=== PATIENT | male | born 2005 | race Two or more races ===

== ENCOUNTER 2024-09-09 17:13 | Inpatient (IN) ==
[2024-09-09 18:46] LABS: Appearance Urine Clear (Clear); Basophils # (auto) 0.03 K/uL (0.00-0.20); Basophils % (auto) 0.5 %; Bilirubin Urine Negative (Negative); Blood Urine Negative (Negative); Color Urine Yellow; Eosinophils # (auto) 0.03 K/uL (0.00-0.50); Eosinophils % (auto) 0.5 %; Glucose Urine UA Negative (Negative); Hematocrit (blood only) 48.1 % (42.0-52.0); Hemoglobin 16.3 g/dl (14.0-18.0); Immature Granulocytes # (auto) 0.01 K/uL (0.01-0.20); Immature Granulocytes % (auto) 0.2 %; Ketones Urine 2+ (Negative); Leukocyte Esterase Urine Negative (Negative); Lymphocytes # (auto) 2.01 K/uL (1.20-3.40); Lymphocytes % (auto) 32.7 %; Mean Corpuscular Hgb Conc 33.9 g/dL (32.0-36.0); Mean Corpuscular Volume 82.5 fL (80.0-100.0); Mean Platelet Volume 9.6 fL (9.4-12.4); Monocytes # (auto) 0.39 K/uL (0.11-0.59); Monocytes % (auto) 6.3 %; Neutrophils # (auto) 3.68 K/uL (1.40-6.50); Neutrophils % (auto) 59.8 %; Nitrite Urine Negative (Negative); Platelet Count 238 K/uL (130-400); Protein Urine Negative (Negative); RDW Coefficient of Variation 13.3 % (11.5-14.5); RDW Standard Deviation 39.8 fL (36.4-46.3); Red Blood Count 5.83 M/uL (4.70-6.10); Specific Gravity Urine 1.021 (1.000-1.030); Urobilinogen Urine Negative (Negative); White Blood Count 6.15 K/ul (4.8-10.8); pH Urine 6.5 (4.5-7.5)
--- NOTE | 2024-09-09 18:58 | Emergency Department Note ---
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 Patient states he has been having suicidal ideation because he is stressed about his classes. Patient states he was started on new anxiety and depression medications but they have not been helping and they have been causing him to have suicidal ideations. Patient Nuys any plan as to how he would kill himself. No access to any firearms. No drugs or alcohol. Home Medications Medication Instructions Recorded Confirmed Type desvenlafaxine succinate 25 mg 25 mg PO DAILY 09/09/24 09/09/24 History tablet,extended release 24 hr lorazepam 0.5 mg tablet 0.5 mg PM 09/09/24 09/09/24 History propranolol 10 mg tablet 10 mg DAILY PRN Anxiety 09/09/24 09/09/24 History Allergies Allergy/AdvReac Type Severity Reaction Status Date / Time No Known Allergies Allergy Verified 09/09/24 20:50 Past Med/Surg History Problem List (Updated 09/09/24 @ 23:37 by Noe Wu MD) Anxiety (Acute) Depression with suicidal ideation (Acute) Medical History No pertinent family history Depression Anxiety Surgical History No pertinent past surgical history Family History Other Family history non-contributory Social History Smoking Status: Current every day smoker Feels Safe at Home: Yes Gender Identity: Male Physical Exam Vital Signs Vital Signs - 24 hr 09/09/24 17:29 09/09/24 21:01 Temperature 36.8 C 36.8 C Temperature Source Skin Oral Pulse Rate 56 L Pulse Rate [Left Radial] 55 L Respiratory Rate 18 18 Blood Pressure 182/90 H Blood Pressure [Left Arm] 122/78 Blood Pressure Mean 120 Blood Pressure Mean [Left Arm] 92 Pulse Oximetry 99 99 Oxygen Delivery Method Room Air Room Air Sepsis Recent Fever Within 48 Hours No Sepsis New/Unexplained Change in Mental Status No Sepsis Action Taken by Nursing No Action Required Physical Exam GENERAL: oriented to person, place, and time. appears well-developed and well- nourished. HENT: Exam performed. - Head: Normocephalic and atraumatic. EYES: Conjunctivae and EOM are normal. Right eye exhibits no discharge. Left eye exhibits no discharge. No scleral icterus. NECK: Normal range of motion. Neck supple. No JVD present. CV: Normal rate, regular rhythm, normal heart sounds and intact distal pulses. There is no peripheral edema. Palpable radial pulses bue. PULM/CHEST: Effort normal and breath sounds normal. No respiratory distress. No stridor. no wheezes. no rales. ABD: The abdomen is soft. There is no tenderness. NEURO: Motor and sensation grossly intact. SKIN: Skin is warm and dry. He is not diaphoretic. PSYCH: Patient appears anxious and depressed. Suicidal ideation. Course Course 171: The patient was evaluated in room A6. A complete history and physical exam was performed 0: Patient medically cleared. Accepted to 3 S. Administered Medications Lorazepam (Lorazepam 0.5 Mg Tab) 0.5 mg PO QPM CHITO Stop: 10/09/24 23:19 Last Admin: 09/09/24 23:30 Dose: 0.5 mg Documented By: SARAH Medical Decision Making Laboratory Data Attestation: I reviewed the patient's lab results. 09/09/24 18:19 09/09/24 18:19 Lab Results 09/09/24 09/09/24 Range/Units 18:19 19:20 WBC 6.15 (4.8-10.8) K/ul RBC 5.83 (4.70-6.10) M/uL Hgb 16.3 (14.0-18.0) g/dl Hct 48.1 (42.0-52.0) % MCV 82.5 (80.0-100.0) fL MCH 28.0 (25.0-34.0) pg MCHC 33.9 (32.0-36.0) g/dL RDW Std Deviation 39.8 (36.4-46.3) fL RDW Coeff of Alfonso 13.3 (11.5-14.5) % Plt Count 238 (130-400) K/uL MPV 9.6 (9.4-12.4) fL Immature Gran % (Auto) 0.2 % Neut % (Auto) 59.8 % Lymph % (Auto) 32.7 % [place] % (Auto) 6.3 % Eos % (Auto) 0.5 % Baso % (Auto) 0.5 % Neut # (Auto) 3.68 (1.40-6.50) K/uL Lymph # (Auto) 2.01 (1.20-3.40) K/uL [place] # (Auto) 0.39 (0.11-0.59) K/uL Eos # (Auto) 0.03 (0.00-0.50) K/uL Baso # (Auto) 0.03 (0.00-0.20) K/uL Immature Gran # (Auto) 0.01 (0.01-0.20) K/uL Sodium 139 (136-145) mmol/L Potassium 3.3 L (3.5-5.1) mmol/L Chloride 104 (98-107) mmol/L Carbon Dioxide 28 (21-32) mmol/L Anion Gap 7 (3-11) BUN 11 (6-23) mg/dl Creatinine 0.99 (0.6-1.4) mg/dl Est Cr Clr Drug Dosing 122.9 ml/min eGFR 111.84 BUN/Creatinine Ratio 11.1 (10-20) Glucose 103 H (70-99(Fasting)) mg/dl Calcium 9.5 (8.6-10.3) mg/dl Total Bilirubin 1.5 H (0.2-1.0) mg/dl AST 16 (13-39) U/L ALT 14 (7-52) U/L Alkaline Phosphatase 111 H (34-104) U/L Total Protein 7.3 (6.0-8.3) gm/dl Albumin 4.4 (3.4-5.0) gm/dl Globulin 2.9 (2.5-4.0) gm/dl Albumin/Globulin Ratio 1.5 (0.9-2) TSH 0.836 (0.300-4.500) uIu/ml Urine Color Yellow Urine Appearance Clear (Clear) Urine pH 6.5 (4.5-7.5) Ur Specific [place] 1.021 (1.000-1.030) Urine Protein Negative (Negative) Urine Glucose (UA) Negative (Negative) Urine Ketones 2+ H (Negative) Urine Blood Negative (Negative) Urine Nitrite Negative (Negative) Urine Bilirubin Negative (Negative) Urine Urobilinogen Negative (Negative) Ur Leukocyte Esterase Negative (Negative) Salicylates < 3.0 L (3.0-30) mg/dl Urine Opiates Screen Neg (Neg) Ur Methadone, Qual Neg (Neg) Urine Fentanyl Screen Neg (Neg) Acetaminophen < 3 L (10-30) ug/ml Urine Barbiturates Neg (Neg) Ur Phencyclidine (PCP) Neg (Neg) U Amphetamin/Meth Scrn Neg (Neg) MDMA (Ecstasy) Screen Neg (Neg) U Benzodiazepines Scrn Neg (Neg) Ur Cocaine Metabolite Neg (Neg) U Marijuana (THC) Screen Neg (Neg) Ethyl Alcohol mg/dL < 10.0 (<10.0) mg/dl SARS-CoV-2, RNA, NAAT NEGATIVE (NEGATIVE) MDM Narrative 1719: The patient was evaluated in room A6. A complete history and physical exam was performed 2230: Patient medically cleared. Accepted to 3 S. Impression & Plan Depression with suicidal ideation, Anxiety Discharge Plan Visit Data Chief Complaint: Mental Health Evaluation Stated Complaint: MEDICAL CLEARANCE ED Provider: Noe Wu Discharge Problem: Depression with suicidal ideation, Anxiety Patient Disposition: Transfer Behavioral Health Fac Discharge Instructions Interventions: ED Discharge Assessment Last Done: 09/09/24 22:28
[2024-09-09 19:04] LABS: Albumin Globulin Ratio 1.5 (0.9-2); Albumin Level 4.4 gm/dl (3.4-5.0); BUN Creatinine Ratio 11.1 (10-20); Bilirubin,Total 1.5 mg/dl (0.2-1.0); Calcium 9.5 mg/dl (8.6-10.3); Creatinine Clr Calc Pharmacy 122.9 ml/min; Globulin 2.9 gm/dl (2.5-4.0); Potassium 3.3 mmol/L (3.5-5.1); Total Protein 7.3 gm/dl (6.0-8.3)
[2024-09-09 19:09] LABS: Acetaminophen < 3 ug/ml (10-30); Salicylate < 3.0 mg/dl (3.0-30)
[2024-09-09 19:13] LABS: Amphetamines+Metham, Urine Neg (Neg); Barbiturates, Urine Neg (Neg); Benzodiazepine, Urine Neg (Neg); Cocaine, Urine Neg (Neg); Fentanyl, Urine Neg (Neg); MDMA (Ecstacy), Urine Neg (Neg); Marijuana, Urine Neg (Neg); Methadone, Urine Neg (Neg); Opiate, Urine Neg (Neg); Phencyclidine, Urine Neg (Neg)
[2024-09-09 19:19] LABS: Thyroid Stimulating Hormone 0.836 uIu/ml (0.300-4.500)
[2024-09-09] MEDS ORDERED: hydrOXYzine HCl 25 MG TAB PO PRN (23:12)
[2024-09-09] MEDS ORDERED: ALUMINUM/MAGNESIUM SUSP 30 ML UDC PO PRN (23:12)
[2024-09-09] MEDS ORDERED: MAGNESIUM HYDROXIDE SUSP 30 ML UDC PO PRN (23:12)
[2024-09-09] MEDS ORDERED: BISMUTH SUBSALICYLATE 262 MG CHEW PO PRN (23:12)
[2024-09-09] MEDS ORDERED: SODIUM CHLORIDE 0.65% NA SOLN 45 ML (OCEAN) PRN (23:12)
[2024-09-09] MEDS ORDERED: ACETAMINOPHEN 325 MG TAB PO PRN (23:12)
[2024-09-09] MEDS ORDERED: PROPRANOLOL HCL 10 MG TAB PO PRN (23:17)
[2024-09-09] MEDS: LORazepam 0.5 MG TAB PO SCH (23:30)
[2024-09-10] MEDS: PROPRANOLOL HCL 10 MG TAB PO SCH (12:23)
[2024-09-10] MEDS: FLUoxetine HCL 10 MG CAP PO SCH (12:23)
[2024-09-10] MEDS: hydrOXYzine HCl 25 MG TAB PO PRN (14:11)
--- NOTE | 2024-09-10 14:11 | History & Physical ---
Date of Service September 10, 2024 Impression / Recommendations Impression SHARON BAKER single, [employer] international student 19-year-old [place] male who presents with suicidal ideation with no plan in the context of ruminating anxiety. He was admitted on 09/09/24 22:06 on a 201 voluntary commitment for suicidal ideation. Presentation consistent with generalized anxiety disorder with panic attacks and major depressive disorder recurrent episode. Presents worsening anxious ruminations and mood symptoms with increased frequency of suicidal thoughts. No complete trials of antidepressants. Presents poor self-esteem and family conflict. He presents highly anxious affect with restlessness, HR of 130 this AM. Labs reviewed: CBC, UA, UDS, COVID swab unremarkable. Potassium 3.3 and alkaline phosphatase of 111. Patient was educated about his conditions, benefits of antidepressant medications, the use of short-term agents to alleviate anxiety in the interim, and the benefits of long-term counseling and CBT to address anxious ruminations. He currently denies SI and is future oriented. Plan to start fluoxetine, increase frequency of propranolol, increased dose of nightly Ativan; medication side effects and adverse effects discussed with patient and agreeable. Would benefit from continued outpatient counseling. Overall, I spent a total of 70 minutes with this case including review of chart records, nursing report, review of lab work, direct evaluation of the patient at bedside, counseling the patient, multidisciplinary team meeting, orders, and documentation in the electronic health record. (1) Generalized anxiety disorder with panic attacks: (2) MDD (major depressive disorder), recurrent episode: (3) Family conflict: (4) Tobacco dependence in remission: Plan 09/10/2024:The patient was admitted to the [facility] ([facility]) on q15 min checks (behavioral with suicide precautions) for safety. The patient will participate in group, recreational, and milieu therapies and w ill be offered additional individual and family sessions as clinically appropriate. Start fluoxetine 10 mg daily Propranolol 10 mg 3 times daily Lorazepam 1 mg at bedtime Inventory Assets Strengths: independent, logical Needs: improved self esteem, coping skills Suicide Risk Level Suicide Risk Level: Moderate (q15 min suicide checks) Risk Factors Assessment Male: Yes : No Do You Have Access To A Gun?: No Health Problems: No Mental Health Diagnoses: Yes Substance Use Disorders: No Previous Attempt: No Family History of Suicide: No Previous Psychiatric Hospitalization: No Hopelessness: No Protective Factors Assessment Druze Beliefs: No : No Responsible for Young Children: No Employed: No Stable Relationships: Yes Supportive Family: No Good Rapport with Provider: Yes Absence of Any Risk Factors Above: No Psychiatric History Identifying Data SHARON BAKER single, [employer] international student 19-year-old [place] male who presents with suicidal ideation with no plan in the context of ruminating anxiety. He was admitted on 09/09/24 22:06 on a 201 voluntary commitment for suicidal ideation. Chief Complaint "Thoughts became stronger" History of Present Illness Patient reports he was having anxious thoughts and felt suicidal. He then contacted friends and broke down in front of them. He went to [facility] recommended he come to the ER. He reports having SI thoughts more frequently and are usually preceded by a loss of interest. He "no more ha and it is worse in the winter". He complains of low energy, constant anxious ruminations, difficulty falling and staying asleep, poor concentration, poor self-esteem. Says this started 12 to 13 years of age. He denies past periods of decreased need for sleep with elevated mood, energy, goal directed activity. He denies past auditory visualizations or paranoia. He denies current SI. Denies past suicide attempts. Engages in self-harm by digging his fingernails into his skin. He reports when he is anxious he has episodes where he has a body tremor, feels tense, increased heart rate, mental feelings of being closed off and this results in a crying spell which last for half an hour. These episodes have been more frequent and happen daily. He reports current conflicts with his parents that he does not want to do data science and wants to pursue arts and become an actor. Grew up in [place] with both parents. They set high expectations for him. Has a younger sister. Historically had a poor relationship with his family. Says he was obese as a child and would often be judged by his family and his peers. He denies any physical or sexual abuse. Reports past trial of antidepressant in [place] at 15 years of age where he took the medication for 2 weeks. Reports has been on Pristiq for 1 week and taking Ativan and propranolol as needed for anxiety. He denies other medication trials. Social history: Born in [place]. 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 Goes to [facility] for counseling and outpatient psych. Denies having legal problems. Single, not currently in relationship. Denies spirituality. Denies drug alcohol problems. Past Psychiatric History Current Psychiatric Diagnosis: Depression; anxiety Do You Have Access To A Gun?: No History of Previous Suicide Attempt: Yes Allergies Allergy/AdvReac Type Severity Reaction Status Date / Time No Known Allergies Allergy Verified 09/09/24 20:50 Home Medications Medication Instructions Recorded Confirmed Type desvenlafaxine succinate 25 mg 25 mg PO DAILY 09/09/24 09/09/24 History tablet,extended release 24 hr lorazepam 0.5 mg tablet 0.5 mg PM 09/09/24 09/09/24 History propranolol 10 mg tablet 10 mg DAILY PRN Anxiety 09/09/24 09/09/24 History Family History Family History of: None Alcohol History Hx of Alcohol Use Over the Past 12 Months: No (Once every 2 weeks. Typically 5 drinks per occasion) AUDIT Total Score: 5 Smoking Use Have You Smoked or Used Tobacco Products in the Last 30 Days: Yes tobacco type: e-cigarettes Smoking Status: Current some day smoker Substance History Hx of Prescription Med Misuse Over the Past 12 Months: No Hx of Over the Counter Med Misuse Over the Past 12 Months: No Hx of Inhalent Misuse Over the Past 12 Months: No Hx of Organic Substance Use Over the Past 12 Months: No (THC but not recently) Hx of Illegal Substances/Street Drug Use Over Past 12 Months: No Problems as a Result of Past Substance Use: None Identified Personal History Living Arrangements: Apartment Highest Grade Completed: High School Graduate Highest Grade Completed Comment: 12th Marital Status: Single Beliefs That Will Affect Care: None Patient History Medical History (Updated 09/10/24 @ 14:05 by Tristen Boswell MD) No pertinent family history Surgical History No pertinent past surgical history Family History Other Family history non-contributory Social History Smoking Status: Current some day smoker Communication Ability: Effective Button Puncher Required: No Beliefs That Will Affect Care: None Feels Safe at Home: Yes Gender Identity: Male Assistive Devices: Glasses Physical Exam Mental Examination: Appearance: Well Groomed Eye Contact: Maintains Eye Contact Motor Behavior: Restless and Wringing Hands Speech: Delayed (slightly) Mood: Anxious Affect: Congruent and Constricted Thought Process: Racing Thought Content: Intact and Linear Hallucinations: None Insight: Poor (to limited) Judgement: Fair (to limited) Vital Signs (Past 24 Hours): Last Vital Signs Temp 36.9 C 09/10/24 06:29 Pulse 69 09/10/24 12:25 Resp 16 09/10/24 06:29 BP 125/79 09/10/24 12:25 Pulse Ox 97 09/09/24 23:42 O2 Del Method Room Air 09/09/24 23:42 Exam Statement: A physical exam was performed in the ED for the purposes of medical clearance. I accept that physical as correct and adequate for the purposes of the inpatient physical exam. Results & Data ([facility]) Laboratory Results Laboratory Results - last 24 hr 09/09/24 09/09/24 18:19 19:20 WBC 6.15 RBC 5.83 Hgb 16.3 Hct 48.1 MCV 82.5 MCH 28.0 MCHC 33.9 RDW Std Deviation 39.8 RDW Coeff of Alfonso 13.3 Plt Count 238 MPV 9.6 Immature Gran % (Auto) 0.2 Neut % (Auto) 59.8 Lymph % (Auto) 32.7 [place] % (Auto) 6.3 Eos % (Auto) 0.5 Baso % (Auto) 0.5 Neut # (Auto) 3.68 Lymph # (Auto) 2.01 [place] # (Auto) 0.39 Eos # (Auto) 0.03 Baso # (Auto) 0.03 Immature Gran # (Auto) 0.01 Sodium 139 Potassium 3.3 L Chloride 104 Carbon Dioxide 28 Anion Gap 7 BUN 11 Creatinine 0.99 Est Cr Clr Drug Dosing 122.9 eGFR 111.84 BUN/Creatinine Ratio 11.1 Glucose 103 H Calcium 9.5 Total Bilirubin 1.5 H AST 16 ALT 14 Alkaline Phosphatase 111 H Total Protein 7.3 Albumin 4.4 Globulin 2.9 Albumin/Globulin Ratio 1.5 TSH 0.836 Urine Color Yellow Urine Appearance Clear Urine pH 6.5 Ur Specific [place] 1.021 Urine Protein Negative Urine Glucose (UA) Negative Urine Ketones 2+ H Urine Blood Negative Urine Nitrite Negative Urine Bilirubin Negative Urine Urobilinogen Negative Ur Leukocyte Esterase Negative Salicylates < 3.0 L Urine Opiates Screen Neg Ur Methadone, Qual Neg Urine Fentanyl Screen Neg Acetaminophen < 3 L Urine Barbiturates Neg Ur Phencyclidine (PCP) Neg U Amphetamin/Meth Scrn Neg MDMA (Ecstasy) Screen Neg U Benzodiazepines Scrn Neg Ur Cocaine Metabolite Neg U Marijuana (THC) Screen Neg Ethyl Alcohol mg/dL < 10.0 SARS-CoV-2, RNA, NAAT NEGATIVE Current Inpatient Medications Current Inpatient Medications: Current Inpatient Medications Acetaminophen (Acetaminophen 325 Mg Tab) 650 mg PO Q4H PRN PRN Reason: Headache or Minor Fever Stop: 10/09/24 23:11 Al Hydrox/Mg Hydrox/Simethicone (Aluminum/Magnesium Susp 30 Ml Udc) 30 ml PO Q4H PRN PRN Reason: GI Upset Stop: 10/09/24 23:11 Bismuth Subsalicylate (Bismuth Subsalicylate 262 Mg Chew) 2 tab PO Q30M PRN PRN Reason: Loose Stool/Diarrhea Stop: 10/09/24 23:11 Fluoxetine HCl (Fluoxetine Hcl 10 Mg Cap) 10 mg PO QAM CHITO Stop: 10/10/24 11:59 Last Admin: 09/10/24 12:23 Dose: 10 mg Hydroxyzine HCl (Hydroxyzine Hcl 25 Mg Tab) 50 mg PO HSZ PRN PRN Reason: Insomnia Stop: 10/09/24 23:11 Hydroxyzine HCl (Hydroxyzine Hcl 25 Mg Tab) 25 mg PO Q4H PRN PRN Reason: Anxiety Stop: 10/09/24 23:11 Lorazepam (Lorazepam 1 Mg Tab) 1 mg PO QPM CHITO Stop: 10/10/24 20:59 Magnesium Hydroxide (Magnesium Hydroxide Susp 30 Ml Udc) 30 ml PO DAILY PRN PRN Reason: Constipation Stop: 10/09/24 23:11 Miscellaneous (Desvenlafaxine Order Awaiting Action) 1 each N/A QS CHITO Stop: 10/10/24 09:29 Last Admin: 09/10/24 10:30 Dose: Not Given Propranolol HCl (Propranolol Hcl 10 Mg Tab) 10 mg PO TID CHITO Stop: 10/10/24 11:59 Last Admin: 09/10/24 12:23 Dose: 10 mg Sodium Chloride (Sodium Chloride 0.65% Na Soln 45 Ml ([place])) 1 - 2 sprays NA PRN PRN PRN Reason: Nasal Dryness/Congestion Stop: 12/21/24 23:11
[2024-09-10] MEDS: LORazepam 1 MG TAB PO SCH (21:28)
--- NOTE | 2024-09-11 09:07 | Discharge Summary ---
Date of Service September 11, 2024 History of Present Illness Patient reports he was having anxious thoughts and felt suicidal. He then contacted friends and broke down in front of them. He went to [facility] recommended he come to the ER. He reports having SI thoughts more frequently and are usually preceded by a loss of interest. He "no more ha and it is worse in the winter". He complains of low energy, constant anxious ruminations, difficulty falling and staying asleep, poor concentration, poor self-esteem. Says this started 12 to 13 years of age. He denies past periods of decreased need for sleep with elevated mood, energy, goal directed activity. He denies past auditory visualizations or paranoia. He denies current SI. Denies past suicide attempts. Engages in self-harm by digging his fingernails into his skin. He reports when he is anxious he has episodes where he has a body tremor, feels tense, increased heart rate, mental feelings of being closed off and this results in a crying spell which last for half an hour. These episodes have been more frequent and happen daily. He reports current conflicts with his parents that he does not want to do data science and wants to pursue arts and become an actor. Grew up in [place] with both parents. They set high expectations for him. Has a younger sister. Historically had a poor relationship with his family. Says he was obese as a child and would often be judged by his family and his peers. He denies any physical or sexual abuse. Reports past trial of antidepressant in [place] at 15 years of age where he took the medication for 2 weeks. Reports has been on Pristiq for 1 week and taking Ativan and propranolol as needed for anxiety. He denies other medication trials. Social history: Born in [place]. 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 Goes to [facility] for counseling and outpatient psych. Denies having legal problems. Single, not currently in relationship. Denies spirituality. Denies drug alcohol problems. Physical Exam Vital Signs (Past 24 Hours) Last Vital Signs Temp 36.8 C 09/11/24 06:50 Pulse 63 09/11/24 06:50 Resp 16 09/11/24 06:50 BP 125/81 09/11/24 06:52 Pulse Ox 99 09/11/24 06:50 O2 Del Method Room Air 09/11/24 06:50 Principal Diagnosis Unspecified Depressive Disorder Psychiatric Data See daily stay summary. In short, patient was engaged with the social/therapeutic milieu of the unit, safety was maintained and the patient was cooperative with care. Medication changes included discontinuation of Pristiq and initiation of fluoxetine for depression and anxiety and increase of ativan for panic attacks and propranolol as off-label use for anxiety and they tolerated this well. He declined a support session but feels well connected to his friends and plans to fly out to stay with his uncle in [place] tomorrow for the s and safety plan was completed prior to discharge. They participated in safety planning and in discussions about ways to seek support and recognizing warning signs and utilizing coping skills. Reviewed ways to have their safety plan and contacts easily available should thoughts of SI re-emerge in the future. Reviewed importance of seeking emergency care should SI intensify, worsen or should they feel unsafe in the future which they agree to do. On the day of discharge they stated their mood was "less anxious" "I no longer have that sense of emptiness" and "I slept really well" and remained future-oriented including packing, flying out tomorrow morning to stay with his uncle in for the next 10 days, hanging out with friends this afternoon, finishing a TV series they were watching together, building a new lego set and engaging in aftercare appointments for psychiatry & therapy at [facility] and [employer] student care and advocacy. Day of Discharge Assessment Today the patient voices readiness for discharge. They note improvement in mood and anxiety. They deny thoughts of harm to self or others. Thoughts remain organized and they are clinically improved from admission. There is no evidence of psychosis. They improved in the hospital with support and medication adjustments. They agree to take medications as prescribed and keep follow-up appointments. At the time of the discharge they are deemed to be stable and appropriate for outpatient level of care. They are not deemed to be at imminent risk of harm to self or others. They are aware of emergency and crisis services. Knows to call 911 or go to nearest emergency care center if in a crisis which cannot be handled as an outpatient. Suicide risk assessment: Acute risk is low given improvement in mood and denial of SI, future-oriented, lack of access to lethal means, improvement in sleep and hopefulness. Chronic risk is moderate given some non-modifiable risk factors: psychiatric co-morbid diagnoses, periods of impulsivity, emotional reactivity but also with protective factors including student, good social support, sense of responsibility to family and social supports, outpatient care in place, positive coping skills, positive problem solving, willingness to engage with treatment and self- observation. Counseled on ways to reduce acute and chronic risk including engaging with outpatient providers, using safety plan if needed, utilizing supports, taking medication, and using coping skills. Modifiable risk factors of SI and depression were addressed during hospitalization through development of new coping skills, safety planning, and medication adjustments. Discharge physical exam: See admission H&P, MSE per above and day of discharge summary. Overall, I spent a total of 35 minutes on this case including meeting with the patient, reviewing the chart, nursing report, multidisciplinary team meeting, discharge orders, anticipatory planning, safety planning, risk assessment and documentation. Transition of Care Transition Of Care Record: was reviewed with the patient Advance Directives Advance Directives Information Provided: Yes Advance Directives: No Mental Health Advance Directive: No Advance Directives on File: No Living Will: No Power of Student Services Counselor: No Advance Directives Reason:: Declines as Mental Health Visit. Suicide Risk Level Suicide Risk Level Comments: imminent risk is low, see further assessment above Risk Factors Assessment Male: Yes : No Do You Have Access To A Gun?: No Health Problems: No Mental Health Diagnoses: Yes Substance Use Disorders: No Previous Attempt: No Family History of Suicide: No Previous Psychiatric Hospitalization: No Hopelessness: No Protective Factors Assessment Mandaen Beliefs: No : No Responsible for Young Children: No Employed: No (but student) Stable Relationships: Yes Supportive Family: Yes (uncle) Good Rapport with Provider: Yes Discharge Data Lab Results 09/09/24 09/09/24 18:19 19:20 WBC 6.15 RBC 5.83 Hgb 16.3 Hct 48.1 MCV 82.5 MCH 28.0 MCHC 33.9 RDW Std Deviation 39.8 RDW Coeff of Alfonso 13.3 Plt Count 238 MPV 9.6 Immature Gran % (Auto) 0.2 Neut % (Auto) 59.8 Lymph % (Auto) 32.7 [place] % (Auto) 6.3 Eos % (Auto) 0.5 Baso % (Auto) 0.5 Neut # (Auto) 3.68 Lymph # (Auto) 2.01 [place] # (Auto) 0.39 Eos # (Auto) 0.03 Baso # (Auto) 0.03 Immature Gran # (Auto) 0.01 Sodium 139 Potassium 3.3 L Chloride 104 Carbon Dioxide 28 Anion Gap 7 BUN 11 Creatinine 0.99 Est Cr Clr Drug Dosing 122.9 eGFR 111.84 BUN/Creatinine Ratio 11.1 Glucose 103 H Calcium 9.5 Total Bilirubin 1.5 H AST 16 ALT 14 Alkaline Phosphatase 111 H Total Protein 7.3 Albumin 4.4 Globulin 2.9 Albumin/Globulin Ratio 1.5 TSH 0.836 Urine Color Yellow Urine Appearance Clear Urine pH 6.5 Ur Specific [place] 1.021 Urine Protein Negative Urine Glucose (UA) Negative Urine Ketones 2+ H Urine Blood Negative Urine Nitrite Negative Urine Bilirubin Negative Urine Urobilinogen Negative Ur Leukocyte Esterase Negative Salicylates < 3.0 L Urine Opiates Screen Neg Ur Methadone, Qual Neg Urine Fentanyl Screen Neg Acetaminophen < 3 L Urine Barbiturates Neg Ur Phencyclidine (PCP) Neg U Amphetamin/Meth Scrn Neg MDMA (Ecstasy) Screen Neg U Benzodiazepines Scrn Neg Ur Cocaine Metabolite Neg U Marijuana (THC) Screen Neg Ethyl Alcohol mg/dL < 10.0 SARS-CoV-2, RNA, NAAT NEGATIVE Hospital Course (1) Generalized anxiety disorder with panic attacks: (2) MDD (major depressive disorder), recurrent episode: (3) Family conflict: (4) Tobacco dependence in remission: Plan 09/11/2024: Tolerating medications without any side effects, slept well, mood has improved, future focused on flight to spend Thanksgiving break with family tomorrow and spending day with friends. Requests discharge today, no 302 criteria nor current safety concerns. 09/10/2024:The patient was admitted to the [facility] ([facility] inpatient mental health unit) on q15 min checks (behavioral with suicide precautions) for safety. The patient will participate in group, recreational, and milieu therapies and will be offered additional individual and family sessions as clinically ap propriate. Start fluoxetine 10 mg daily Propranolol 10 mg 3 times daily Lorazepam 1 mg at bedtime Mental Health & Subst Abuse Tx Psychiatrist Name of Psychiatrist: [facility] will set up psychiatry appt after therapy appt on 09/22/24 Therapist Name of Therapist: [facility] - [facility] therapist Tori Mejias Therapist's Date of Therapist Appointment: 09/22/24 Time of Therapist Appointment: 2PM Therapy Appointment Comment: In person Business English Instructor Name of Business English Instructor: None Post Discharge Appointments Primary Care Physician Name Of Family Doctor/PCP: Luis Cervantes Primary Care Date of Future Appointment with PCP: 09/22/24 Time of Appointment with PCP: 9:40AM Other #1: Name of Aftercare Appointment: Student Care and Advocacy - [facility] post hospitalization meeting Phone Number of Aftercare Appointment: [phone] Date of Aftercare Appointment: 09/14/24 Time of Aftercare Appointment: 10AM Aftercare Appointment Comment: Zoom link will be sent to your [facility] email Discharge Plan Discharge Items Patient Disposition: Home - Self-Care Reason For Visit: UNSPECIFIED DEPRESSIVE DISORDER Discharge Diagnosis: Unspecified Depressive Disorder Activity: Resume your previous activity Non-emergency contact: Primary Care Provider, Psychiatrist and Therapist Call non-emergency contact if: you have any medication questions and your symptoms worsen Follow-up/Referrals: [facility] [Primary Care Provider] - Diet: Regular Addtl Attending Provider Instructions: Optional mobile apps we discussed: -Suicide safety plan -Virtual Hope Box SPECIAL CARE INSTRUCTIONS: 1. Follow through with your scheduled aftercare appointments. If unable to keep an appointment, please call to reschedule. 2. Take your medication only as prescribed. Medication should not be changed or stopped without the approval of your doctor. In the event of worsening symptoms or concerns about side effects, contact your doctor immediately. 3. Utilize new healthy coping skills, anger management skills, and stress management skills learned during your hospitalization. Journal feelings and process them with a support person. Identify stressors or situations that may result in relapse, deterioration or inappropriate behaviors and develop a plan to deal with those issues. 4. If your coping skills are ineffective and you are in crisis, contact your outpatient providers for direction. If unable to reach your providers, please call the [facility] CRISIS LINE AT , go to the [facility] walk-in center at [address], [address], [place], or go to the closest Emergency Room. 5. Avoid alcohol and un-prescribed drugs. 6. You have been provided with the Mental Health Advance Directives Pamphlet for your review. 7. Your condition is stable for discharge to outpatient level of care, but recovery is an ongoing process. Ifthoughts to harm yourself or others return, follow the safety plan developed during your stay. Planning for a safe return home includes securing weapons. Our treatment team recommends weaponsbe removed from the home until your outpatient provider reassesses your progress. In rare cases where the items themselvescannot be removed, guns and ammunitionshould be secured separatelyand keys stored by a reliable personoutside of the home. If you were admitted on an involuntary commitment, the police or other legal authorities may be involved in this process. AFTERCARE APPOINTMENTS: * Please call your insurance company prior to your scheduled appointment to confirm your aftercare providers are covered. Take your insurance information to your appointments. WHO TO CALL AND WHEN: Medical Emergencies: For questions or emergencies related to your hospital stay, please contact the Inpatient Behavioral Health Unit at [phone]. A stem roller is on-call 12/05 for the Behavioral Health Unit for emergencies At any time you feel your situation is an emergency, you may also call 911 immediately. [place] Crisis Hotline: 955 Pending Studies at Discharge: No Stand-Alone Forms: [facility] Medications and DC Order Prescriptions: New propranolol 10 mg Tablet 10 mg PO TID 30 Days Qty: 90 0RF fluoxetine 10 mg Capsule 10 mg PO QAM 30 Days Qty: 30 0RF hydroxyzine HCl 25 mg Tablet 25 mg PO DAILY PRN (Reason: anxiety/insomnia) 30 Days Qty: 30 0RF lorazepam 1 mg Tablet 1 mg PO QPM PRN (Reason: panic attack(s)) 30 Days Qty: 30 0RF Discontinued desvenlafaxine succinate 25 mg tablet extended release 24 hr 25 mg PO DAILY lorazepam 0.5 mg tablet 0.5 mg PM propranolol 10 mg tablet 10 mg DAILY PRN (Reason: Anxiety) Discharge Orders: Discharge Order (Routine); Ordered 09/11/24 Ordered By: Marina Velasquez Admission Data Admit Date/Time: 09/09/24 22:06 Attending Provider: Tristen Boswell Admit Provider: Tristen Boswell Primary Care Provider: [facility] Other Interventions: Discharge Summary Assessment (RN) Last Done: 09/11/24 10:39 Coding Level of Care Code 71719 D/C day mgmt > 30 min Diagnoses Generalized anxiety disorder with panic attacks F41.1; F41.0 MDD (major depressive disorder), recurrent episode F33.9 Family conflict Z63.8 Tobacco dependence in remission F17.201
== END 2024-09-11 12:00 | disposition home or self-care (01) | DRG 880 ==
LOC: ED 17:13 → 3S 22:06

== ENCOUNTER 2025-01-06 11:49 | Inpatient (IN) ==
--- NOTE | 2025-01-06 12:04 | Emergency Department Note ---
Impression & Plan Depression with suicidal ideation, MDD (major depressive disorder), recurrent episode ED Provider Note NAME: SHARON ABKER AGE: 19 SEX: M : 2005 ARRIVES VIA: Walk-In INFORMANT: Patient, nursing report/case management ED PROVIDER(S): Anurag Tejada MD CHIEF COMPLAINT: Suicidal ideation with plan, outpatient referral MEDICAL DECISION MAKING: Patient presents due to concern for SI with plan. Blood work was obtained along with an EKG. Patient had complained of headache but only has slight headache currently no focal signs on exam and is well-appearing do not believe the patient requires CT head at this time. EKG unremarkable. Blood work with a normal white count H&H and platelet count patient's kidney function is unremarkable. Bilirubin 1.5 likely incidental and not contributory to the patient's symptoms. BSG 101. Patient's urinalysis does not show evidence of obvious infection. UDS Tylenol alcohol salicylate negative COVID-negative. Referrals were made after being seen by psych case maker. Patient was accepted to [facility]. and subsequently admitted. Discussion w/ other healthcare providers: None Prior /Outside records reviewed: None Differential diagnosis: Mood disorder, infection, hypoglycemia, electrolyte abnormalities, dehydration, medication side effect among others were considered. Diagnostics, as interpreted by me: ECG: Sinus bradycardia, rate of 57, normal intervals, normal axis no ST elevations. Medical decision rules: Suicide risk severity score Imaging studies: None HPI: Patient presents due to concern for suicidal ideation with plan. The patient reportedly began having symptoms over a spring break. The patient states that he has been taking his medications. Patient denies any drug use. He does smoke tobacco occasionally and does drink alcohol occasionally. Patient feels as though his meds have not been working as much. The patient states that he has SI with plan to harm self by taking medications that would stop his heart. Does not list specific meds. Patient denies any HI or AVH. Hypersomnolence noted. Patient reports being referred from [facility] today. Patient denies any access to guns or weapons. Patient is a [employer] student. No issues with appetite. Patient does admit to being increasingly anxious. Patient also reports palpitations and feeling though his heart rate was elevated today. Patient denies any chest pains. PAST MEDICAL HISTORY: See Below PAST SURGICAL HISTORY: See Below SOCIAL HISTORY: See Below HOME MEDICATIONS: See Below ALLERGIES: See Below VITALS: See Below PHYSICAL EXAMINATION: GENERAL: NAD, non-toxic. Mildly anxious in appearance. EYE EXAM: Normal conjunctiva. PERRL, no anisocoria and EOM's grossly intact w/o pain. OROPHARYNX: Moist mucus membranes, grossly normal dentition. NECK: Trachea midline, no stridor. Supple, no nuchal rigidity, no adenopathy, non-tender. No signs of meningismus. FROM of the neck with good chin to chest and neck extension. LUNGS: Clear to auscultation. Normal chest wall mechanics. HEART: NSR, no MRG. ABDOMEN: Abdomen soft, non-tender, no masses, no rebound or guarding. BACK: No CVA TTP. SKIN: No rashes and no bruising. UPPER EXTREMITIES: Upper extremities are grossly normal. LOWER EXTREMITIES: Grossly normal, no edema. NEURO EXAM: A&O x3, cranial nerves II-XII grossly intact, normal speech, moves all 4 extremities. Psych: Positive SI, anxious, negative HI or AVH. Past Med/Surg History Problem List (Updated 01/06/25 @ 19:21 by Anurag Tejada MD) Depression with suicidal ideation (Acute) MDD (major depressive disorder), recurrent episode (Acute) Generalized anxiety disorder with panic attacks Medical History Tobacco dependence in remission Family conflict No pertinent family history Surgical History No pertinent past surgical history Family History Other Family history non-contributory Social History Smoking Status: Current some day smoker Tobacco Type: Cigarettes and E-cigarettes / Vaping Preferred Language: Nepalese Communication Ability: Effective Set Decorator Required: No Beliefs That Will Affect Care: None Feels Safe at Home: Yes Gender Identity: Male Assistive Devices: Glasses Allergies Allergies Allergy/AdvReac Type Severity Reaction Status Date / Time No Known Allergies Allergy Verified 09/09/24 20:50 Results & Data (ED) Vital Signs Vital Signs - 24 hr 01/06/25 11:51 01/06/25 14:57 01/06/25 17:18 Temperature 36.5 C Temperature Source Oral Pulse Rate 69 Pulse Rate [Right Finger] 52 L 54 L Respiratory Rate 20 18 14 Respiratory Effort / Characteristics Non-Labored Spontaneous Non-Labored Non-Labored Respiratory Depth Normal Normal Normal Respiratory Pattern Regular Blood Pressure 122/74 Blood Pressure [Right Arm] 103/62 107/66 Blood Pressure Mean 90 Blood Pressure Mean [Right Arm] 75 79 Blood Pressure Position [Right Arm] Lying Pulse Oximetry 97 99 99 Oxygen Delivery Method Room Air Room Air Room Air Sepsis Recent Fever Within 48 Hours No Sepsis New/Unexplained Change in Mental Status N/A Sepsis Action Taken by Nursing No Action Required Home Medications Current Medication List: was personally reviewed by me Laboratory Data Attestation: I reviewed the patient's lab results. 01/06/25 12:36 01/06/25 12:36 Lab Results 01/06/25 01/06/25 01/06/25 Range/Units 12:05 12:36 12:39 WBC 5.61 (4.8-10.8) K/ul RBC 5.93 (4.70-6.10) M/uL Hgb 16.3 (14.0-18.0) g/dl Hct 49.3 (42.0-52.0) % MCV 83.1 (80.0-100.0) fL MCH 27.5 (25.0-34.0) pg MCHC 33.1 (32.0-36.0) g/dL RDW Std Deviation 40.7 (36.4-46.3) fL RDW Coeff of Alfonso 13.4 (11.5-14.5) % Plt Count 227 (130-400) K/uL MPV 9.6 (9.4-12.4) fL Immature Gran % (Auto) 0.4 % Neut % (Auto) 57.9 % Lymph % (Auto) 32.8 % [place] % (Auto) 7.5 % Eos % (Auto) 1.2 % Baso % (Auto) 0.2 % Neut # (Auto) 3.25 (1.40-6.50) K/uL Lymph # (Auto) 1.84 (1.20-3.40) K/uL [place] # (Auto) 0.42 (0.11-0.59) K/uL Eos # (Auto) 0.07 (0.00-0.50) K/uL Baso # (Auto) 0.01 (0.00-0.20) K/uL Immature Gran # (Auto) 0.02 (0.01-0.20) K/uL Sodium 136 (136-145) mmol/L Potassium 4.2 (3.5-5.1) mmol/L Chloride 104 (98-107) mmol/L Carbon Dioxide 29 (21-32) mmol/L Anion Gap 3 (3-11) BUN 13 (6-23) mg/dl Creatinine 1.08 (0.6-1.4) mg/dl Est Cr Clr Drug Dosing 113.1 ml/min eGFR 100.75 BUN/Creatinine Ratio 12.0 (10-20) Glucose 101 H (70-99(Fasting)) mg/dl Calcium 9.3 (8.6-10.3) mg/dl Total Bilirubin 1.5 H (0.2-1.0) mg/dl AST 20 (13-39) U/L ALT 17 (7-52) U/L Alkaline Phosphatase 96 (34-104) U/L Total Protein 7.5 (6.0-8.3) gm/dl Albumin 4.7 (3.4-5.0) gm/dl Globulin 2.8 (2.5-4.0) gm/dl Albumin/Globulin Ratio 1.7 (0.9-2) TSH 0.729 (0.300-4.500) uIu/ml Urine Color Dark Yellow Urine Appearance Clear (Clear) Urine pH 8.0 H (4.5-7.5) Ur Specific [place] 1.033 H (1.000-1.030) Urine Protein 1+ H (Negative) Urine Glucose (UA) Negative (Negative) Urine Ketones Trace H (Negative) Urine Blood Negative (Negative) Urine Nitrite Negative (Negative) Urine Bilirubin Negative (Negative) Urine Urobilinogen Negative (Negative) Ur Leukocyte Esterase Negative (Negative) Urine WBC (Auto) 0-5 (0-5) /hpf Urine RBC (Auto) 0-2 (0-2) /hpf U Hyaline Cast (Auto) 0-2 (0-2) /lpf U Epithel Cells (Auto) 0-2 (0-2) /hpf Urine Bacteria (Auto) None Seen (None Seen) Salicylates < 3.0 L (3.0-30) mg/dl Urine Opiates Screen Neg (Neg) Ur Methadone, Qual Neg (Neg) Urine Fentanyl Screen Neg (Neg) Acetaminophen < 3 L (10-30) ug/ml Urine Barbiturates Neg (Neg) Ur Phencyclidine (PCP) Neg (Neg) U Amphetamin/Meth Scrn Neg (Neg) MDMA (Ecstasy) Screen Neg (Neg) U Benzodiazepines Scrn Neg (Neg) Ur Cocaine Metabolite Neg (Neg) U Marijuana (THC) Screen Neg (Neg) Ethyl Alcohol mg/dL < 10.0 (<10.0) mg/dl SARS-CoV-2, RNA, NAAT NEGATIVE (NEGATIVE) Administered Medications Discontinued Medications Lorazepam (Lorazepam 1 Mg Tab) 1 mg SL NOW STA Stop: 01/06/25 12:41 Last Admin: 01/06/25 12:50 Dose: 1 mg Documented By: MAGDALENA Discharge Plan Visit Data Chief Complaint: Mental Health Evaluation Stated Complaint: SUICIDE, DEPRESSION ED Provider: Anurag Tejada Discharge Problem: Depression with suicidal ideation, MDD (major depressive disorder), recurrent episode Forms Stand Alone Forms: [facility], Suicide Prevention Resources Referrals [facility] [Non[facility] - Discharge Problem: MDD (major depressive disorder), recurrent episode Qualifiers: Major depression episode severity: severe
[2025-01-06] MEDS: LORazepam 1 MG TAB SL STA (12:50)
[2025-01-06 12:53] LABS: Basophils # (auto) 0.01 K/uL (0.00-0.20); Basophils % (auto) 0.2 %; Eosinophils # (auto) 0.07 K/uL (0.00-0.50); Eosinophils % (auto) 1.2 %; Hematocrit (blood only) 49.3 % (42.0-52.0); Hemoglobin 16.3 g/dl (14.0-18.0); Immature Granulocytes # (auto) 0.02 K/uL (0.01-0.20); Immature Granulocytes % (auto) 0.4 %; Lymphocytes # (auto) 1.84 K/uL (1.20-3.40); Lymphocytes % (auto) 32.8 %; Mean Corpuscular Hemoglobin 27.5 pg (25.0-34.0); Mean Corpuscular Hgb Conc 33.1 g/dL (32.0-36.0); Mean Corpuscular Volume 83.1 fL (80.0-100.0); Mean Platelet Volume 9.6 fL (9.4-12.4); Monocytes # (auto) 0.42 K/uL (0.11-0.59); Monocytes % (auto) 7.5 %; Neutrophils # (auto) 3.25 K/uL (1.40-6.50); Neutrophils % (auto) 57.9 %; Platelet Count 227 K/uL (130-400); RDW Coefficient of Variation 13.4 % (11.5-14.5); RDW Standard Deviation 40.7 fL (36.4-46.3); Red Blood Count 5.93 M/uL (4.70-6.10); White Blood Count 5.61 K/ul (4.8-10.8)
[2025-01-06 13:03] LABS: Appearance Urine Clear (Clear); Bacteria Urine Automated None Seen (None Seen); Bilirubin Urine Negative (Negative); Blood Urine Negative (Negative); Cast Urine Automated 0-2 /lpf (0-2); Color Urine Dark Yellow; Epithelial Cell Urine Auto 0-2 /hpf (0-2); Glucose Urine UA Negative (Negative); Ketones Urine Trace (Negative); Leukocyte Esterase Urine Negative (Negative); Nitrite Urine Negative (Negative); Protein Urine 1+ (Negative); RBC Urine Automated 0-2 /hpf (0-2); Specific Gravity Urine 1.033 (1.000-1.030); Urobilinogen Urine Negative (Negative); WBC Urine Automated 0-5 /hpf (0-5)
[2025-01-06 13:09] LABS: Albumin Globulin Ratio 1.7 (0.9-2); Albumin Level 4.7 gm/dl (3.4-5.0); Bilirubin,Total 1.5 mg/dl (0.2-1.0); Calcium 9.3 mg/dl (8.6-10.3); Creatinine Clr Calc Pharmacy 113.1 ml/min; Globulin 2.8 gm/dl (2.5-4.0); Potassium 4.2 mmol/L (3.5-5.1); Total Protein 7.5 gm/dl (6.0-8.3)
[2025-01-06 13:20] LABS: Amphetamines+Metham, Urine Neg (Neg); Barbiturates, Urine Neg (Neg); Benzodiazepine, Urine Neg (Neg); Cocaine, Urine Neg (Neg); Fentanyl, Urine Neg (Neg); MDMA (Ecstacy), Urine Neg (Neg); Marijuana, Urine Neg (Neg); Methadone, Urine Neg (Neg); Opiate, Urine Neg (Neg); Phencyclidine, Urine Neg (Neg)
[2025-01-06 13:25] LABS: Thyroid Stimulating Hormone 0.729 uIu/ml (0.300-4.500)
[2025-01-06 13:44] LABS: Acetaminophen < 3 ug/ml (10-30); Salicylate < 3.0 mg/dl (3.0-30)
[2025-01-06] MEDS ORDERED: hydrOXYzine HCl 25 MG TAB PO PRN (17:37)
[2025-01-06] MEDS ORDERED: SODIUM CHLORIDE 0.65% NA SOLN 45 ML (OCEAN) PRN (17:37)
[2025-01-06] MEDS ORDERED: MAGNESIUM HYDROXIDE SUSP 30 ML UDC PO PRN (17:37)
[2025-01-06] MEDS ORDERED: ALUMINUM/MAGNESIUM SUSP 30 ML UDC PO PRN (17:37)
[2025-01-06] MEDS ORDERED: BISMUTH SUBSALICYLATE 262 MG CHEW PO PRN (17:37)
--- NOTE | 2025-01-06 17:53 | Electrocardiogram Report ---
Test Reason : Blood Pressure : */* mmHG Vent. Rate : 57 BPM Atrial Rate : 57 BPM P-R Int : 146 ms QRS Dur : 90 ms QT Int : 374 ms P-R-T Axes : 62 68 29 degrees QTcB Int : 364 ms Sinus bradycardia with sinus arrhythmia Nonspecific ST and T wave abnormality Abnormal ECG No previous ECGs available Confirmed by Carlitos Hogan ([id number]) on 01/06/2025 5:52:53 PM Referred By: Mildred Cervantes Confirmed By: Carlitos Hogan
--- NOTE | 2025-01-07 09:19 | History & Physical ---
Date of Service January 07, 2025 Impression / Recommendations Impression SHARON BAKER is a 19-year-old man and [employer] student who currently lives off- campus with roommates, has a history of MDD, VALERIE, and was admitted on 01/06/25 20:00 on a 201 voluntary commitment for SI with plan to overdose on medications. Diagnostically consistent with unspecified mood disorder (differential diagnosis of bipolar disorder vs borderline personality disorder vs MDD), anxiety with panic attacks, and periods of sleep disturbance. Recent stressors include medication changes, mood fluctuations, and alcohol and nicotine vape use suggesting also possibility for substance-induced or withdrawal mood symptoms. Discussed medication treatment options in detail. Discussed risks, benefits and alternatives. He would like to decrease fluoxetine and requests this change be made. He wants to continue propranolol (ok for now, will continue to explore recent misuse though very low abuse potential, seems he was overutilizing in an attempt to address his worsening anxiety), increase Buspar and starting laine zapine for help with insomnia, anxiety and depression. Reviewed side effects including but not limited to: GI, KOVACS, sexual side effects, and counseled on black box warning of potential for emergence of or increased SI and need to let staff know or seek emergency care in the future should this occur or should they feel unsafe with fluoxetine; low BP/syncope with propranolol; dizziness/KOVACS with buspar; sedation/increased appetite/weight gain with mirtazapine. Overall I spent a total of 75 minutes for this admission including review of chart records, review of labwork, direct evaluation of the patient, counseling the patient, ordering medication, risk assessment, discussion with the psychiatric liason RN and documentation in the electronic health record. (1) Depression with suicidal ideation: (2) Generalized anxiety disorder with panic attacks: (3) Unspecified mood [affective] disorder: Plan 01/07/2025: The patient was admitted to the [facility] ([facility] mental health unit) on q15 min checks (behavioral with suicide precautions) for safety. The patient will participate in group, recreational, and milieu therapies and will be offered additional individual and family sessions as clinically appropriate. -He would like to decrease the fluoxetine so will reduce to 20mg daily starting tomorrow AM, consider option for SNRI trial vs mood stabilizer augmentation based on symptom questionnaires -Increase Buspar to 10mg BID -Continue prior to admission propranolol 20mg TID -Start mirtazapine 15mg HS -Symptom questionnaires for: Braulio BPD and Mood disorder questionnaire Inventory Assets Strengths: supportive relationships, willing to get treatment Needs: safety and stabilization, medication adjustment, additional coping skills, increased outpatient services Suicide Risk Level Suicide Risk Level: High-Moderate (q15 min suicide checks) (SI with plan and mood sx prior to admission, feels safe in the hospital and able to ask for support if needed) Risk Factors Assessment Male: Yes : No Do You Have Access To A Gun?: No Health Problems: No Mental Health Diagnoses: Yes Substance Use Disorders: No Previous Attempt: No Family History of Suicide: No Previous Psychiatric Hospitalization: Yes Hopelessness: Yes Protective Factors Assessment Employed: Yes ([employer] [place] [employer] at [employer]) Stable Relationships: Yes Supportive Family: Yes Good Rapport with Provider: Yes Psychiatric History Identifying Data SHARON BAKER is a 19-year-old man and [employer] student who currently lives off[facility] with roommates, has a history of MDD, VALERIE, and was admitted on 01/06/25 20:00 on a 201 voluntary commitment for SI with plan to overdose on medications. Chief Complaint "I just started crashing". History of Present Illness He presents for psychiatric admission for worsening depression and SI with plan of overdosing in the context of more frequent alcohol use/nicotine vape use, recent medication changes and mood fluctuations. Suicidal thoughts began five days ago, following an increase in his Prozac dosage approximately four weeks prior. He describes a chaotic period after the medication change, characterized by suicidal ideation, self-dissatisfaction, and a sense of rushing. He attempted to manage symptoms with hydroxyzine for sleep, experienced a week of elevated mood, then returned to depressive symptoms after discontinuing hydroxyzine. He began vaping nicotine, which he believes contributed to feeling 'off' and decreased medication efficacy. He tried lorazepam a few times without relief. Depressive symptoms began on the previous Friday, including feelings of helplessness and hopelessness. He reports increased sleep duration but poor sleep quality, and variable appetite. Suicidal thoughts fluctuate with his mood swings. He reports ongoing current anxiety but mentions feeling 'invincible' before his medications 'stopped working.' He had a panic attack two days ago at work which he reports never used to happen when he took propranolol. He endorses depressive symptoms starting Friday including anhedonia, decreased motivation (not attending classes), isolating, decreased energy, variable appetite, and increased sleep but not restful. SI has been occurring daily, "I get sad, then I get horny then I get sad again". He started thinking about overdosing on medication on Friday. He reports "I was going to do it but then I had a therapist appointment the next day" and she encouraged him to wait till he saw his provider at [facility] and then she recommended he come here. Suicidal thoughts are present and fluctuate with mood swings. He endorses recent anxiety symptoms for which he's been trying to use propranolol and ativan with limited benefit. States he was overusing propranolol noting "propranolol a crazy amount like two every 2-3 hours, I think I had like 10 that day" and he recalls then feeling really happy later that day but then his mood worsened again. He tried taking more propranolol again but it didn't have the same effect, recently he returned to using it as prescribed. He is currently prescribed: fluoxetine 40mg (it was increased from 20mg about 4 weeks ago, initially his mood worsened then his mood improved and then it worsened again), propranolol 20mg TID (he feels like it was working but recently stopped working), buspar 7.5mg BID and sometimes uses ativan prn (notes he uses it as an "SOS" when his anxiety is very severe, has only used 7 tabs since last script from when he left the hospital in August 2024). Psychiatric ROS notable for possible history of hypomania (he recalls not sleeping, being "crazy happy", having a lot of energy, being very social while in [place] in September 2024). At times has symptoms of psychosis (though lately has been more paranoid due to weird dreams and struggling at times to differentiate this from reality), self-harms via pulling hair ("if my head is spinning too much", hasn't self-harmed in about a month, in past self-harmed via cutting and burning). History of eating disorder but doesn't do this anymore. No current or history of PTSD (sometimes has brief flashbacks to his grandmother's but very infrequent). Past Psychiatric History Current Psychiatric Diagnosis: VALERIE Outpatient Services: Therapy with [facility] and just switched to [facility] provider for psychiatric medications Previous Psych Admissions: [facility] at [facility] Aug 2024 Do You Have Access To A Gun?: No History of Previous Suicide Attempt: No Describe Attempts in the Past: when young rehearsal behaviors Past Medication Trials: martin Chahal Reports past trial of antidepressant in [place] at 15 years of age where he took the medication for 2 weeks. Past Head Trauma/Neuro History History of Concussion/Seizure: No Allergies Allergy/AdvReac Type Severity Reaction Status Date / Time No Known Allergies Allergy Verified 09/09/24 20:50 Home Medications Medication Instructions Recorded Confirmed Type buspirone 7.5 mg tablet 7.5 mg PO BID 01/07/25 01/07/25 History fluoxetine 40 mg capsule 40 mg PO DAILY 01/07/25 01/07/25 History propranolol 10 mg tablet 10 mg PO TID 01/07/25 01/07/25 History Family History Family History of: Doesn't Know Alcohol History Hx of Alcohol Use Over the Past 12 Months: Yes (Occasionally) AUDIT Total Score: 2 Smoking Use Have You Smoked or Used Tobacco Products in the Last 30 Days: No tobacco type: e-cigarettes Smoking Status: Current some day smoker Smoking packs per day: 2 Substance History Hx of Prescription Med Misuse Over the Past 12 Months: No Hx of Over the Counter Med Misuse Over the Past 12 Months: No Hx of Inhalent Misuse Over the Past 12 Months: No Hx of Organic Substance Use Over the Past 12 Months: No Hx of Illegal Substances/Street Drug Use Over Past 12 Months: No Problems as a Result of Past Substance Use: None Identified Personal History Living Arrangements: Apartment Highest Grade Completed: Some College Beliefs That Will Affect Care: None Patient History Medical History Tobacco dependence in remission Family conflict No pertinent family history Surgical History No pertinent past surgical history Family History Other Family history non-contributory Social History Smoking Status: Current some day smoker Tobacco Type: Cigarettes and E-cigarettes / Vaping Preferred Language: Setswana Communication Ability: Effective Crab Steamer Required: No Beliefs That Will Affect Care: None Feels Safe at Home: Yes Gender Identity: Male Assistive Devices: Glasses Review of Systems Review of Systems: All systems reviewed & are unremarkable except as noted in HPI & below Physical Exam Psychiatric: Orientation: alert and oriented x 3 Apperance: appropriately dressed and appropriately groomed Eye Contact: good eye contact Motor Behavior: no abnormal motor movements Speech: normal rate/rhythm/volume of speech Affect: + constricted affect Mood: + depressed mood and + anxious mood Thought Process: + circumstantial thought process Thought Content: reality based without delusions Suicidal Thoughts: denies suicidal plan and denies suicidal intent; + reports suicidal thoughts (intermittent) Homicidal Thoughts: denies homicidal thoughts Hallucinations: no auditory hallucinations and no visual hallucinations Cognition: recent memory grossly intact, remote memory grossly intact, attention grossly intact and language grossly intact Estimated Intelligence: consistent with education level Insight: + limited insight Judgment: + limited judgement Vital Signs (Past 24 Hours): Last Vital Signs Temp 36.6 C 01/07/25 06:41 Pulse 82 01/07/25 06:42 Resp 16 01/07/25 06:41 BP 110/68 01/07/25 06:42 Pulse Ox 99 01/06/25 20:08 O2 Del Method Room Air 01/06/25 20:08 Exam Statement: A physical exam was performed in the ED by Dr. Tejada for the purposes of medical clearance. I accept that physical as correct and adequate for the purposes of the inpatient physical exam. Results & Data ([facility]) Laboratory Results Laboratory Results - last 24 hr 01/06/25 01/06/25 01/06/25 12:05 12:36 12:39 WBC 5.61 RBC 5.93 Hgb 16.3 Hct 49.3 MCV 83.1 MCH 27.5 MCHC 33.1 RDW Std Deviation 40.7 RDW Coeff of Alfonso 13.4 Plt Count 227 MPV 9.6 Immature Gran % (Auto) 0.4 Neut % (Auto) 57.9 Lymph % (Auto) 32.8 [place] % (Auto) 7.5 Eos % (Auto) 1.2 Baso % (Auto) 0.2 Neut # (Auto) 3.25 Lymph # (Auto) 1.84 [place] # (Auto) 0.42 Eos # (Auto) 0.07 Baso # (Auto) 0.01 Immature Gran # (Auto) 0.02 Sodium 136 Potassium 4.2 Chloride 104 Carbon Dioxide 29 Anion Gap 3 BUN 13 Creatinine 1.08 Est Cr Clr Drug Dosing 113.1 eGFR 100.75 BUN/Creatinine Ratio 12.0 Glucose 101 H Calcium 9.3 Total Bilirubin 1.5 H AST 20 ALT 17 Alkaline Phosphatase 96 Total Protein 7.5 Albumin 4.7 Globulin 2.8 Albumin/Globulin Ratio 1.7 TSH 0.729 Urine Color Dark Yellow Urine Appearance Clear Urine pH 8.0 H Ur Specific [place] 1.033 H Urine Protein 1+ H Urine Glucose (UA) Negative Urine Ketones Trace H Urine Blood Negative Urine Nitrite Negative Urine Bilirubin Negative Urine Urobilinogen Negative Ur Leukocyte Esterase Negative Urine WBC (Auto) 0-5 Urine RBC (Auto) 0-2 U Hyaline Cast (Auto) 0-2 U Epithel Cells (Auto) 0-2 Urine Bacteria (Auto) None Seen Salicylates < 3.0 L Urine Opiates Screen Neg Ur Methadone, Qual Neg Urine Fentanyl Screen Neg Acetaminophen < 3 L Urine Barbiturates Neg Ur Phencyclidine (PCP) Neg U Amphetamin/Meth Scrn Neg MDMA (Ecstasy) Screen Neg U Benzodiazepines Scrn Neg Ur Cocaine Metabolite Neg U Marijuana (THC) Screen Neg Ethyl Alcohol mg/dL < 10.0 SARS-CoV-2, RNA, NAAT NEGATIVE Current Inpatient Medications Current Inpatient Medications: Current Inpatient Medications Acetaminophen (Acetaminophen 325 Mg Tab) 650 mg PO Q4H PRN PRN Reason: Headache or Minor Fever Stop: 02/05/25 17:36 Al Hydrox/Mg Hydrox/Simethicone (Aluminum/Magnesium Susp 30 Ml Udc) 30 ml PO Q4H PRN PRN Reason: GI Upset Stop: 02/05/25 17:36 Bismuth Subsalicylate (Bismuth Subsalicylate 262 Mg Chew) 2 tab PO Q30M PRN PRN Reason: Loose Stool/Diarrhea Stop: 02/05/25 17:36 Hydroxyzine HCl (Hydroxyzine Hcl 25 Mg Tab) 50 mg PO HSZ PRN PRN Reason: Insomnia Stop: 02/05/25 17:36 Hydroxyzine HCl (Hydroxyzine Hcl 25 Mg Tab) 25 mg PO Q4H PRN PRN Reason: Anxiety Stop: 02/05/25 17:36 Magnesium Hydroxide (Magnesium Hydroxide Susp 30 Ml Udc) 30 ml PO DAILY PRN PRN Reason: Constipation Stop: 02/05/25 17:36 Sodium Chloride (Sodium Chloride 0.65% Na Soln 45 Ml ([place])) 1 - 2 sprays NA PRN PRN PRN Reason: Nasal Dryness/Congestion Stop: 02/05/25 17:36
[2025-01-07] MEDS: ACETAMINOPHEN 325 MG TAB PO PRN (10:10)
[2025-01-07] MEDS: busPIRone 7.5 MG TAB PO SCH (11:46)
[2025-01-07] MEDS: FLUoxetine HCL 20 MG CAP PO SCH (11:46)
[2025-01-07] MEDS: PROPRANOLOL HCL 10 MG TAB PO SCH (13:39)
[2025-01-07] MEDS: PROPRANOLOL HCL 20 MG TAB PO SCH (20:57)
[2025-01-07] MEDS: busPIRone 5 MG TAB PO SCH (20:57)
[2025-01-07] MEDS: MIRTAZAPINE TAB 15 MG TAB PO SCH (20:58)
[2025-01-08] MEDS: FLUoxetine HCL 20 MG CAP PO SCH (09:08)
--- NOTE | 2025-01-08 15:34 | Psychiatric Progress Note ---
Date of Service January 08, 2025 Impression / Recommendations Impression SHARON BAKER is a 19-year-old man and [employer] student who currently lives off- campus with roommates, has a history of MDD, VALERIE, and was admitted on 01/06/25 20:00 on a 201 voluntary commitment for SI with plan to overdose on medications. Diagnostically consistent with unspecified mood disorder (differential diagnosis of bipolar disorder vs borderline personality disorder vs MDD), VALERIE with panic attacks, and periods of sleep disturbance. Recent stressors include medication changes, mood fluctuations, and alcohol and nicotine vape use suggesting also possibility for substance-induced or withdrawal mood symptoms. A: Was unable to tolerate higher doses of fluoxetine and will continue current dose. Reports BuSpar was ineffective in the past and will discontinue. Plan to start Abilify for SSRI augmentation; medication side effects and adverse effects discussed with patient and agreeable. Mirtazapine at 15 mg was too sedating for the patient and will decrease the dose today. Overall I spent a total of 40 minutes for this admission including review of chart records, review of labwork, direct evaluation of the patient, counseling the patient, ordering medication, risk assessment, discussion with the sychiatric liaison RN and documentation in the electronic health record. (1) Depression with suicidal ideation: (2) Generalized anxiety disorder with panic attacks: (3) Unspecified mood [affective] disorder: Plan 01/08/2025: Start aripiprazole 5 mg at bedtime Discontinue buspirone Decrease mirtazapine to 7.5 mg at bedtime Labs: Hemoglobin A1c and fasting lipid panel, vitamin D, vitamin B12 01/07/2025: The patient was admitted to the [facility] ([facility] mental health unit) on q15 min checks (behavioral with suicide precautions) for safety. The patient will participate in group, recreational, and milieu therapies and will be offered additional individual and family sessions as clinically appropriate. -He would like to decrease the fluoxetine so will reduce to 20mg daily starting tomorrow AM, consider option for SNRI trial vs mood stabilizer augmentation based on symptom questionnaires -Increase Buspar to 10mg BID -Continue prior to admission propranolol 20mg TID -Start mirtazapine 15mg HS -Symptom questionnaires for: Braulio BPD and Mood disorder questionnaire Inventory Assets Strengths: supportive relationships, willing to get treatment Needs: safety and stabilization, medication adjustment, additional coping skills, increased outpatient services Suicide Risk Level Suicide Risk Level: High-Moderate (q15 min suicide checks) (SI with plan and mood sx prior to admission, feels safe in the hospital and able to ask for support if needed) Suicide Risk Level Comments: Risk Factors Assessment Male: Yes : No Do You Have Access To A Gun?: No Health Problems: No Mental Health Diagnoses: Yes Substance Use Disorders: No Previous Attempt: No Family History of Suicide: No Previous Psychiatric Hospitalization: Yes Hopelessness: Yes Protective Factors Assessment Employed: Yes ([employer] at [employer]) Stable Relationships: Yes Supportive Family: Yes Good Rapport with Provider: Yes Interval History Identifying Information SHARON BAKER is a 19-year-old man and [employer] student who currently lives off- campus with roommates, has a history of MDD, VALERIE, and was admitted on 01/06/25 20:00 on a 201 voluntary commitment for SI with plan to overdose on medications. Chief Complaint Depression, anxiety Review of Systems Sleep Information Total Hours of Sleep: 6 Meal Information Percent Meal Consumed - Breakfast: 100 Percent Meal Consumed - Lunch: 100 Percent Meal Consumed - Dinner: 100 Subjective Subjective Patient was seen & assessed and interval progress reviewed with treatment team nursing and social work Patient reports having high anxiety after spring. Was isolating. Had worsening racing thoughts and would often question himself. Associated physical symptoms with increased heart rate, shortness of breath, tremor. Would last 10 to 15 minutes. Often thoughts would resolve around paranoia or fear of judgment. Reports taking lorazepam that he had from his previous hospitalization and was somewhat effective. Has been following up with his PCP for psychiatric care. PCP increased his Prozac to 20 mg. Then went to 40 mg but had an headache for the past month. He saw a therapist once. Does not feel she has the training to help him. Reports recently going to [place] and felt more "carefree" and was feeling better there. Says he did not question things as much and did not feel judged. Reports mood issues and anxiety have him impacted his function. Reports recently feeling suicidal to get rid of the feelings of anxiety. Physical Exam Mental Examination Appearance: Well Groomed Eye Contact: Direct Eye Contact Motor Behavior: Restless Speech: Normal Mood: Depressed Affect: Flat Thought Process: Intact Hallucinations: None Insight: Poor Judgement: Poor Vital Signs (Past 24 Hours) Last Vital Signs Temp 36.6 C 01/08/25 06:37 Pulse 52 L 01/08/25 06:38 Resp 16 01/08/25 06:37 BP 106/66 01/08/25 06:38 Pulse Ox 99 01/06/25 20:08 O2 Del Method Room Air 01/06/25 20:08 Results & Data ([facility]) Current Inpatient Medications Current Inpatient Medications: Current Inpatient Medications Acetaminophen (Acetaminophen 325 Mg Tab) 650 mg PO Q4H PRN PRN Reason: Headache or Minor Fever Stop: 02/05/25 17:36 Last Admin: 01/07/25 10:10 Dose: 650 mg Al Hydrox/Mg Hydrox/Simethicone (Aluminum/Magnesium Susp 30 Ml Udc) 30 ml PO Q4H PRN PRN Reason: GI Upset Stop: 02/05/25 17:36 Aripiprazole (Aripiprazole 5 Mg Tab) 5 mg PO HS CHITO Stop: 02/07/25 21:59 Bismuth Subsalicylate (Bismuth Subsalicylate 262 Mg Chew) 2 tab PO Q30M PRN PRN Reason: Loose Stool/Diarrhea Stop: 02/05/25 17:36 Fluoxetine HCl (Fluoxetine Hcl 20 Mg Cap) 20 mg PO DAILY CHITO Stop: 02/07/25 08:59 Last Admin: 01/08/25 09:08 Dose: 20 mg Hydroxyzine HCl (Hydroxyzine Hcl 25 Mg Tab) 50 mg PO HSZ PRN PRN Reason: Insomnia Stop: 02/05/25 17:36 Hydroxyzine HCl (Hydroxyzine Hcl 25 Mg Tab) 25 mg PO Q4H PRN PRN Reason: Anxiety Stop: 02/05/25 17:36 Magnesium Hydroxide (Magnesium Hydroxide Susp 30 Ml Udc) 30 ml PO DAILY PRN PRN Reason: Constipation Stop: 02/05/25 17:36 Mirtazapine (Mirtazapine Tab 15 Mg Tab) 7.5 mg PO HS CHITO Stop: 02/07/25 21:59 Propranolol HCl (Propranolol Hcl 20 Mg Tab) 20 mg PO TID CHITO Stop: 02/06/25 20:59 Last Admin: 01/08/25 13:03 Dose: 20 mg Sodium Chloride (Sodium Chloride 0.65% Na Soln 45 Ml ([place])) 1 - 2 sprays NA PRN PRN PRN Reason: Nasal Dryness/Congestion Stop: 02/05/25 17:36 Mental Health & Subst Abuse Tx Therapist Name of Therapist: None Social Work Faculty Member Name of Social Work Faculty Member: None Post Discharge Appointments Primary Care Physician Name Of Family Doctor/PCP: DERECK Other #1: Name of Aftercare Appointment: Student and Care Advocacy Aftercare Appointment Comment: They will email a video link to your [employer] email
[2025-01-08] MEDS: ARIPiprazole 5 MG TAB PO SCH (21:43)
[2025-01-08] MEDS: MIRTAZAPINE TAB 15 MG TAB PO SCH (21:46)
[2025-01-09 07:50] LABS: Estimated Average Glucose 114 mg/dl; Hemoglobin A1C 5.6 % (4.5-5.6)
[2025-01-09 08:01] LABS: Chol HDL Ratio 3.2 (0-5)
[2025-01-09] MEDS: CHOLECALCIFEROL 125 MCG (5,000 UNITS) TAB PO SCH (13:22)
[2025-01-09] MEDS: CYANOCOBALAMIN (B-12) 500 MCG TABLET PO SCH (13:22)
--- NOTE | 2025-01-09 15:30 | Psychiatric Progress Note ---
Date of Service January 09, 2025 Impression / Recommendations Impression SHARON BAKER is a 19-year-old man and [employer] student who currently lives off- campus with roommates, has a history of MDD, VALERIE, and was admitted on 01/06/25 20:00 on a 201 voluntary commitment for SI with plan to overdose on medications. A: Patient is presenting an improved mood with a decrease in racing thoughts. Concern for orthostatic hypotension side effect from mirtazapine in addition to excess sedation and will discontinue the medication. Patient prefers to have as needed sleep aid instead. Has been tolerating Abilify well. Clarified his past history of mood symptoms and does not appear to meet criteria for past hypomanic or manic episodes however advised patient to be vigilant if antidepressants are ineffective or invoke manic symptoms. We reviewed the screening instrument for borderline personality disorder which patient scored 8 out of 10 and meets criteria. Encourage patient to engage in intensive outpatient program with dialectical behavioral therapy. Labs resulted: Hemoglobin A1c and fasting lipid panel unremarkable; vitamin D insufficient; vitamin B12 deficient. Overall I spent a total of 40 minutes for this admission including review of chart records, review of labwork, direct evaluation of the patient, counseling the patient, ordering medication, risk assessment, discussion with the psychiatric liaison RN and documentation in the electronic health record. (1) Generalized anxiety disorder with panic attacks: (2) Unspecified mood [affective] disorder: (3) Borderline personality disorder: (4) Depression with anxiety: (5) Vitamin D insufficiency: (6) Vitamin B12 deficiency: Plan 01/09/2025: Discontinue mirtazapine Start vitamin D 125 mcg daily Start vitamin B12 500 mcg daily 01/08/2025: Start aripiprazole 5 mg at bedtime Discontinue buspirone Decrease mirtazapine to 7.5 mg at bedtime Labs: Hemoglobin A1c and fasting lipid panel, vitamin D, vitamin B12 01/07/2025: The patient was admitted to the [facility] ([facility] inpatient mental health unit) on q15 min checks (behavioral with suicide precautions) for safety. The patient will participate in group, recreational, and milieu therapies and will be offered additional individual and family sessions as clinically appropriate. -He would like to decrease the fluoxetine so will reduce to 20mg daily starting tomorrow AM, consider option for SNRI trial vs mood stabilizer augmentation based on symptom questionnaires -Increase Buspar to 10mg BID -Continue prior to admission propranolol 20mg TID -Start mirtazapine 15mg HS -Symptom questionnaires for: Braulio BPD and Mood disorder questionnaire Inventory Assets Strengths: supportive relationships, willing to get treatment Needs: safety and stabilization, medication adjustment, additional coping skills, increased outpatient services Suicide Risk Level Suicide Risk Level: High-Moderate (q15 min suicide checks) (SI with plan and mood sx prior to admission, feels safe in the hospital and able to ask for support if needed) Suicide Risk Level Comments: Risk Factors Assessment Male: Yes : No Do You Have Access To A Gun?: No Health Problems: No Mental Health Diagnoses: Yes Substance Use Disorders: No Previous Attempt: No Family History of Suicide: No Previous Psychiatric Hospitalization: Yes Hopelessness: Yes Protective Factors Assessment Employed: Yes ([employer] at [employer]) Stable Relationships: Yes Supportive Family: Yes Good Rapport with Provider: Yes Interval History Identifying Information SHARON BAKER is a 19-year-old man and [employer] student who currently lives off- campus with roommates, has a history of MDD, VALERIE, and was admitted on 01/06/25 20:00 on a 201 voluntary commitment for SI with plan to overdose on medications. Chief Complaint Anxiety Review of Systems Sleep Information Total Hours of Sleep: 7 Meal Information Percent Meal Consumed - Breakfast: 100 Percent Meal Consumed - Lunch: 100 Percent Meal Consumed - Dinner: 100 Subjective Subjective Patient was seen & assessed and interval progress reviewed with treatment team nursing and social work Overnight slept 7 hours. We did mood 7 out of 10. Has been attending groups. He reports getting up to use the bathroom in the middle of the night. His head was spinning in his "eyes went to black". Complains of nausea at the time. Says that his vision problem resolved quickly and he did not fall. He reports being sleepy this morning. Endorses that racing thoughts have improved. Reports feeling tired. He denies suicidal ideation. We clarify past mood symptoms and he reports periods of time where he is excited for potential trip and that he would sleep 5 hours on average, would have high energy, would last a week, no change in behaviors others have mentioned, and would sleep excessively and eat more once he got home. Reports having depression since the sixth grade. Reports a history of unstable emotions even at his best, having eating binges or spending sprees to feel better, deliberately hurting self physically and provided the example of putting a lit cigarette on himself to feel better. Physical Exam Mental Examination Appearance: Well Groomed Eye Contact: Direct Eye Contact Motor Behavior: Restless Speech: Normal Mood: Euthymic Affect: Constricted Thought Process: Intact Thought Content: Racing Hallucinations: None Insight: Poor (to limited) Judgement: Poor Vital Signs (Past 24 Hours) Last Vital Signs Temp 36.6 C 01/09/25 06:41 Pulse 54 L 01/09/25 09:19 Resp 16 01/09/25 06:41 BP 109/68 01/09/25 09:19 Pulse Ox 99 01/06/25 20:08 O2 Del Method Room Air 01/06/25 20:08 Results & Data ([facility]) Laboratory Results Laboratory Results - last 24 hr 01/09/25 07:00 Estimat Average Glucose 114 Hemoglobin A1c 5.6 Triglycerides 150 Cholesterol 165 LDL Cholesterol, Calc 83 VLDL Cholesterol, Calc 30 HDL Cholesterol 52 Cholesterol/HDL Ratio 3.2 Vitamin B12 157 L 25-OH Vitamin D Total 15.9 L Current Inpatient Medications Current Inpatient Medications: Current Inpatient Medications Acetaminophen (Acetaminophen 325 Mg Tab) 650 mg PO Q4H PRN PRN Reason: Headache or Minor Fever Stop: 02/05/25 17:36 Last Admin: 01/07/25 10:10 Dose: 650 mg Al Hydrox/Mg Hydrox/Simethicone (Aluminum/Magnesium Susp 30 Ml Udc) 30 ml PO Q4H PRN PRN Reason: GI Upset Stop: 02/05/25 17:36 Aripiprazole (Aripiprazole 5 Mg Tab) 5 mg PO HS CHITO Stop: 02/07/25 21:59 Last Admin: 01/08/25 21:43 Dose: 5 mg Bismuth Subsalicylate (Bismuth Subsalicylate 262 Mg Chew) 2 tab PO Q30M PRN PRN Reason: Loose Stool/Diarrhea Stop: 02/05/25 17:36 Cyanocobalamin (Cyanocobalamin (B-12) 500 Mcg Tablet) 500 mcg PO QAM CHITO Stop: 02/08/25 12:14 Last Admin: 01/09/25 13:22 Dose: 500 mcg Fluoxetine HCl (Fluoxetine Hcl 20 Mg Cap) 20 mg PO DAILY CHITO Stop: 02/07/25 08:59 Last Admin: 01/09/25 09:18 Dose: 20 mg Hydroxyzine HCl (Hydroxyzine Hcl 25 Mg Tab) 50 mg PO HSZ PRN PRN Reason: Insomnia Stop: 02/05/25 17:36 Hydroxyzine HCl (Hydroxyzine Hcl 25 Mg Tab) 25 mg PO Q4H PRN PRN Reason: Anxiety Stop: 02/05/25 17:36 Magnesium Hydroxide (Magnesium Hydroxide Susp 30 Ml Udc) 30 ml PO DAILY PRN PRN Reason: Constipation Stop: 02/05/25 17:36 Propranolol HCl (Propranolol Hcl 20 Mg Tab) 20 mg PO TID CHITO Stop: 02/06/25 20:59 Last Admin: 01/09/25 14:24 Dose: Not Given Sodium Chloride (Sodium Chloride 0.65% Na Soln 45 Ml (Llano)) 1 - 2 sprays NA PRN PRN PRN Reason: Nasal Dryness/Congestion Stop: 02/05/25 17:36 Vitamin D (Cholecalciferol 125 Mcg (5,000 Units) Tab) 125 mcg PO QAM [facility] Stop: 02/08/25 12:14 Last Admin: 01/09/25 13:22 Dose: 125 mcg Mental Health & Subst Abuse Tx Therapist Name of Therapist: None Reproduction Specialist Name of Reproduction Specialist: None Post Discharge Appointments Primary Care Physician Name Of Family Doctor/PCP: DERECK Other #1: Name of Aftercare Appointment: Student and Care Advocacy Aftercare Appointment Comment: They will email a video link to your [employer] email
[2025-01-09] MEDS: hydrOXYzine HCl 25 MG TAB PO PRN (21:21)
--- NOTE | 2025-01-10 10:22 | Discharge Summary ---
Date of Service January 10, 2025 History of Present Illness He presents for psychiatric admission for worsening depression and SI with plan of overdosing in the context of more frequent alcohol use/nicotine vape use, recent medication changes and mood fluctuations. Suicidal thoughts began five days ago, following an increase in his Prozac dosage approximately four weeks prior. He describes a chaotic period after the medication change, characterized by suicidal ideation, self-dissatisfaction, and a sense of rushing. He attempted to manage symptoms with hydroxyzine for sleep, experienced a week of elevated mood, then returned to depressive symptoms after discontinuing hydroxyzine. He began vaping nicotine, which he believes contributed to feeling 'off' and decreased medication efficacy. He tried lorazepam a few times without relief. Depressive symptoms began on the previous Friday, including feelings of helplessness and hopelessness. He reports increased sleep duration but poor sleep quality, and variable appetite. Suicidal thoughts fluctuate with his mood swings. He reports ongoing current anxiety but mentions feeling 'invincible' before his medications 'stopped working.' He had a panic attack two days ago at work which he reports never used to happen when he took propranolol. He endorses depressive symptoms starting Friday including anhedonia, decreased motivation (not attending classes), isolating, decreased energy, variable appetite, and increased sleep but not restful. SI has been occurring daily, "I get sad, then I get horny then I get sad again". He started thinking about overdosing on medication on Friday. He reports "I was going to do it but then I had a therapist appointment the next day" and she encouraged him to wait till he saw his provider at [facility] and then she recommended he come here. Suicidal thoughts are present and fluctuate with mood swings. He endorses recent anxiety symptoms for which he's been trying to use propranolol and ativan with limited benefit. States he was overusing propranolol noting "propranolol a crazy amount like two every 2-3 hours, I think I had like 10 that day" and he recalls then feeling really happy later that day but then his mood worsened again. He tried taking more propranolol again but it didn't have the same effect, recently he returned to using it as prescribed. He is currently prescribed: fluoxetine 40mg (it was increased from 20mg about 4 weeks ago, initially his mood worsened then his mood improved and then it wor sened again), propranolol 20mg TID (he feels like it was working but recently stopped working), buspar 7.5mg BID and sometimes uses ativan prn (notes he uses it as an "SOS" when his anxiety is very severe, has only used 7 tabs since last script from when he left the hospital in August 2024). Psychiatric ROS notable for possible history of hypomania (he recalls not sleeping, being "crazy happy", having a lot of energy, being very social while in [place] in September 2024). At times has symptoms of psychosis (though lately has been more paranoid due to weird dreams and struggling at times to d ifferentiate this from reality), self-harms via pulling hair ("if my head is spinning too much", hasn't self-harmed in about a month, in past self-harmed via cutting and burning). History of eating disorder but doesn't do this anymore. No current or history of PTSD (sometimes has brief flashbacks to his grandmother's but very infrequent). Physical Exam Mental Examination Appearance: Well Groomed Eye Contact: Direct Eye Contact Motor Behavior: Restless Speech: Normal Mood: Euthymic Affect: Congruent and Constricted Thought Process: Intact and Linear Thought Content: Intact and Logical Hallucinations: None Insight: Poor (to limited) Judgement: Poor (to limited, improved) Vital Signs (Past 24 Hours) Last Vital Signs Temp 36.5 C 01/10/25 09:23 Pulse 86 01/10/25 09:23 Resp 16 01/10/25 09:23 BP 95/64 L 01/10/25 09:23 Pulse Ox 99 01/10/25 09:23 O2 Del Method Room Air 01/06/25 20:08 Principal Diagnosis Generalized Anxiety Disorder with panic attacks Psychiatric Data See daily stay summary. In short, safety was maintained and the patient was cooperative with care. Medication changes included decreasing home Fluoxetine to 20mg daily (Was unable to tolerate 40mg), starting Abilify 5mg daily, d/c home buspirone, d/c mirtazapine (orthostatic hypotension), starting Vit B12 and D supplements for deficiency and insufficiency respectively and they tolerated this well. A family session was held and safety plan was completed prior to discharge. Pt was encouraged to engage in CBT and DBT for maladaptive thought patterns and to address borderline PD condition. He presented an improvement in racing thoughts, resolution of SI, and was future oriented prior to discharge. Day of Discharge Assessment Today the patient voices readiness for discharge. They note improvement in mood and deny thoughts to harm self or others. Thoughts remain organized and they are improved from admission. There is no evidence of psychosis. They agree to take mediations as prescribed and keep follow-up appointments. They are stable for discharge to outpatient level of care. Transition of Care Transition Of Care Record: was reviewed with the patient Advance Directives Advance Directives Information Provided: Yes Advance Directives: No Mental Health Advance Directive: No Advance Directives on File: No Living Will: No Power of Fashion Consultant Sales: No Advance Directives Reason:: Declines as Mental Health Visit. Suicide Risk Level Suicide Risk Level Comments: Risk Factors Assessment Male: Yes : No Do You Have Access To A Gun?: No Health Problems: No Mental Health Diagnoses: Yes Substance Use Disorders: No Previous Attempt: No Family History of Suicide: No Previous Psychiatric Hospitalization: Yes Hopelessness: Yes Protective Factors Assessment Employed: Yes ([employer] at [employer]) Stable Relationships: Yes Supportive Family: Yes Good Rapport with Provider: Yes Discharge Data Lab Results 01/06/25 01/06/25 01/06/25 12:05 12:36 12:39 WBC 5.61 RBC 5.93 Hgb 16.3 Hct 49.3 MCV 83.1 MCH 27.5 MCHC 33.1 RDW Std Deviation 40.7 RDW Coeff of Alfonso 13.4 Plt Count 227 MPV 9.6 Immature Gran % (Auto) 0.4 Neut % (Auto) 57.9 Lymph % (Auto) 32.8 Morrill % (Auto) 7.5 Eos % (Auto) 1.2 Baso % (Auto) 0.2 Neut # (Auto) 3.25 Lymph # (Auto) 1.84 Morrill # (Auto) 0.42 Eos # (Auto) 0.07 Baso # (Auto) 0.01 Immature Gran # (Auto) 0.02 Sodium 136 Potassium 4.2 Chloride 104 Carbon Dioxide 29 Anion Gap 3 BUN 13 Creatinine 1.08 Est Cr Clr Drug Dosing 113.1 eGFR 100.75 BUN/Creatinine Ratio 12.0 Glucose 101 H Estimat Average Glucose Hemoglobin A1c Calcium 9.3 Total Bilirubin 1.5 H AST 20 ALT 17 Alkaline Phosphatase 96 Total Protein 7.5 Albumin 4.7 Globulin 2.8 Albumin/Globulin Ratio 1.7 Triglycerides Cholesterol LDL Cholesterol, Calc VLDL Cholesterol, Calc HDL Cholesterol Cholesterol/HDL Ratio Vitamin B12 25-OH Vitamin D Total TSH 0.729 Urine Color Dark Yellow Urine Appearance Clear Urine pH 8.0 H Ur Specific [place] 1.033 H Urine Protein 1+ H Urine Glucose (UA) Negative Urine Ketones Trace H Urine Blood Negative Urine Nitrite Negative Urine Bilirubin Negative Urine Urobilinogen Negative Ur Leukocyte Esterase Negative Urine WBC (Auto) 0-5 Urine RBC (Auto) 0-2 U Hyaline Cast (Auto) 0-2 U Epithel Cells (Auto) 0-2 Urine Bacteria (Auto) None Seen Salicylates < 3.0 L Urine Opiates Screen Neg Ur Methadone, Qual Neg Urine Fentanyl Screen Neg Acetaminophen < 3 L Urine Barbiturates Neg Ur Phencyclidine (PCP) Neg U Amphetamin/Meth Scrn Neg MDMA (Ecstasy) Screen Neg U Benzodiazepines Scrn Neg Ur Cocaine Metabolite Neg U Marijuana (THC) Screen Neg Ethyl Alcohol mg/dL < 10.0 SARS-CoV-2, RNA, NAAT NEGATIVE 01/09/25 07:00 WBC RBC Hgb Hct MCV MCH MCHC RDW Std Deviation RDW Coeff of Alfonso Plt Count MPV Immature Gran % (Auto) Neut % (Auto) Lymph % (Auto) Morrill % (Auto) Eos % (Auto) Baso % (Auto) Neut # (Auto) Lymph # (Auto) Morrill # (Auto) Eos # (Auto) Baso # (Auto) Immature Gran # (Auto) Sodium Potassium Chloride Carbon Dioxide Anion Gap BUN Creatinine Est Cr Clr Drug Dosing eGFR BUN/Creatinine Ratio Glucose Estimat Average Glucose 114 Hemoglobin A1c 5.6 Calcium Total Bilirubin AST ALT Alkaline Phosphatase Total Protein Albumin Globulin Albumin/Globulin Ratio Triglycerides 150 Cholesterol 165 LDL Cholesterol, Calc 83 VLDL Cholesterol, Calc 30 HDL Cholesterol 52 Cholesterol/HDL Ratio 3.2 Vitamin B12 157 L 25-OH Vitamin D Total 15.9 L TSH Urine Color Urine Appearance Urine pH Ur Specific [place] Urine Protein Urine Glucose (UA) Urine Ketones Urine Blood Urine Nitrite Urine Bilirubin Urine Urobilinogen Ur Leukocyte Esterase Urine WBC (Auto) Urine RBC (Auto) U Hyaline Cast (Auto) U Epithel Cells (Auto) Urine Bacteria (Auto) Salicylates Urine Opiates Screen Ur Methadone, Qual Urine Fentanyl Screen Acetaminophen Urine Barbiturates Ur Phencyclidine (PCP) U Amphetamin/Meth Scrn MDMA (Ecstasy) Screen U Benzodiazepines Scrn Ur Cocaine Metabolite U Marijuana (THC) Screen Ethyl Alcohol mg/dL SARS-CoV-2, RNA, NAAT Hospital Course (1) Generalized anxiety disorder with panic attacks: (2) Borderline personality disorder: (3) Depression with anxiety: (4) Vitamin D insufficiency: (5) Vitamin B12 deficiency: Plan 01/09/2025: Discontinue mirtazapine Start vitamin D 125 mcg daily Start vitamin B12 500 mcg daily 01/08/2025: Start aripiprazole 5 mg at bedtime Discontinue buspirone Decrease mirtazapine to 7.5 mg at bedtime Labs: Hemoglobin A1c and fasting lipid panel, vitamin D, vitamin B12 01/07/2025: The patient was admitted to the [facility] ([facility] mental health unit) on q15 min checks (behavioral with suicide precautions) for safety. The patient will participate in group, recreational, and milieu therapies and will be offered additional individual and family sessions as clinically appropriate. -He would like to decrease the fluoxetine so will reduce to 20mg daily starting tomorrow AM, consider option for SNRI trial vs mood stabilizer augmentation based on symptom questionnaires -Increase Buspar to 10mg BID -Continue prior to admission propranolol 20mg TID -Start mirtazapine 15mg HS -Symptom questionnaires for: Braulio BPD and Mood disorder questionnaire Mental Health & Subst Abuse Tx Therapist Name of Therapist: None Junior Mechanical Engineer Name of Junior Mechanical Engineer: None Post Discharge Appointments Primary Care Physician Name Of Family Doctor/PCP: DERECK Other #1: Name of Aftercare Appointment: Student and Care Advocacy Aftercare Appointment Comment: They will email a video link to your [employer] email Discharge Plan Discharge Items Patient Disposition: Home - Self-Care Reason For Visit: UNSPECIFIED DEPRESSIVE DISORDER Discharge Diagnosis: (1) Generalized anxiety disorder with panic attacks: (2) Borderline personality disorder: (3) Depression with anxiety: (4) Vitamin B12 deficiency: (5) Vitamin D insufficiency: Condition on Discharge: Fair Activity: Resume your previous activity Non-emergency contact: Primary Care Provider, Psychiatrist and Therapist Call non-emergency contact if: you have any medication questions and your symptoms worsen Follow-up/Referrals: Mildred Cervantes MD [Primary Care Provider] - Diet: Regular Addtl Attending Provider Instructions: Continue Aripiprazole 5mg at bedtime (can be taken anytime of the day) Continue Fluoxetine 20mg daily Continue Propranolol 20mg three times a day Continue Vit D and Vit B12 supplement, follow-up with primary care doctor in 3-6 months to get updated blood levels -Engage in regular counseling. Work on cognitive behavioral therapy to address maladaptive thinking (including automatic negative thoughts and negative self perception about self). Pending Studies at Discharge: No Stand-Alone Forms: My [facility] [employer], Smoking Cessation Medications and DC Order Prescriptions: New cyanocobalamin (vitamin B-12) 500 mcg Tablet 500 mcg PO QAM Qty: 30 0RF propranolol 20 mg Tablet 20 mg PO TID Qty: 90 0RF fluoxetine 20 mg Capsule 20 mg PO DAILY Qty: 30 0RF aripiprazole [Abilify] 5 mg Tablet 5 mg PO HS Qty: 30 0RF cholecalciferol (vitamin D3) 125 mcg (5,000 unit) Tablet 125 mcg PO QAM Qty: 30 0RF hydroxyzine HCl 50 mg tablet 50 mg PO HSZ PRN (Reason: insomnia,anxiety) Qty: 30 0RF Discontinued propranolol 10 mg tablet 10 mg PO TID fluoxetine 40 mg capsule 40 mg PO DAILY buspirone 7.5 mg tablet 7.5 mg PO BID Discharge Orders: Discharge Order (Routine); Ordered 01/10/25 Ordered By: Tristen Boswell Admission Data Admit Date/Time: 01/06/25 20:00 Attending Provider: Tristen Boswell Admit Provider: Marina Velasquez Primary Care Provider: Mildred Cervantes Other Interventions: Discharge Summary Assessment (RN) Last Done: 01/10/25 09:23 C[place] [address] D/C day mgmt > 30 min Patient Type Established History Detailed Exam Detailed Medical Decision Making High Complexity Diagnoses Generalized anxiety disorder with panic attacks F41.1; F41.0 Borderline personality disorder F60.3 Depression with anxiety F41.8 Vitamin D insufficiency E55.9 Vitamin B12 deficiency E53.8
== END 2025-01-10 10:54 | disposition home or self-care (01) | DRG 880 ==
LOC: ED 11:49 → 3S 19:52 → SUATTDRO 20:00 → 3S 20:00